=== PATIENT | male | born 1970 | race Caucasian/White ===

== ENCOUNTER 2017-05-06 21:32 | Emergency (ER) | payer SELFPAY ==
[~2017-05-06] VITALS: Ht 175.3 cm; Wt 85.3 kg
[~2017-05-06 21:32] MED LIST: DUONSOL2 NEB; VENTAER INH
[2017-05-06 21:34] VITALS: BP 171/83; PULSE 94; RESP 18; TEMP 98.3; O2SAT 98
[2017-05-06] MEDS ORDERED: SYMB80AE INH (21:50)
--- NOTE | 2017-05-06 21:52 | PD ---
HPI Chief Complaint: Back/ Neck Pain or Injury Time Seen by Provider: 21:49 Travel History International Travel<30 days: No Contact w/Intl Traveler<30days: No Traveled to known affect area: No History of Present Illness HPI 46-year-old male with history of low back pain presents to the emergency department with acute flareup of his chronic low back pain. He states it's in the central lower lumbar spine. He denies sciatic symptoms. He states it is worse with certain movements. He denies bowel or bladder problems. He denies weakness in the lower extremities but mainly stiffness in the low back. Patient denies any specific injury. He is requesting no narcotic medications. He is allergic to erythromycin and iodine. PFSH Past Medical History Asthma: Yes Blood Disorders: No Cancer: No Cardiovascular Problems: No Diminished Hearing: No Endocrine: No Genitourinary: No Hepatitis: No Immune Disorder: No Implanted Vascular Access Dvce: No Musculoskeletal: No Neurologic: No Psychiatric: No Reproductive: No Respiratory: Yes (asthma) Immunizations Current: Yes Ulcer: No Past Surgical History Other Surgery: No Social History Alcohol Use: No Tobacco Use: No Substance Use: Yes Allergies-Medications (Allergen,Severity, Reaction): Coded Allergies: Erythromycin (Verified Allergy, Severe, HIVES, 05/06/17) Iodine (Verified Allergy, Severe, RASH, 05/06/17) Reported Meds & Prescriptions Reported Meds & Active Scripts Active Prednisone 20 Mg Tab 20 Mg PO BID Non-Aspirin Pain Relief ES (Acetaminophen) 500 Mg Tab 1,000 Mg PO Q6HR PRN Reported Symbicort Inh (Budesonide/Formoterol Fumarate) 80-4.5 Mcg/Act Aero 2 Puff INH Q12HR Review of Systems General / Constitutional: No: Fever Eyes: No: Visual changes HENT: No: Headaches Cardiovascular: No: Chest Pain or Discomfort Respiratory: No: Shortness of Breath Gastrointestinal: No: Abdominal Pain Genitourinary: No: Dysuria Musculoskeletal: Positive: Arthralgias, Limited ROM, Pain Skin: No Rash Neurologic: No: Weakness Psychiatric: No: Depression Endocrine: No: Polydipsia Hematologic/Lymphatic: No: Easy Bruising Physical Exam Narrative GENERAL: Patient is in mild to moderate distress. SKIN: Warm and dry. Normal color. Normal turgor. No rash. HEAD: Atraumatic. Normocephalic. EYES: Pupils equal and round. No scleral icterus. No injection or drainage. ENT: No nasal bleeding or discharge. Mucous membranes pink and moist. Pharynx is clear. Airway is patent. NECK: Trachea midline. Supple and nontender. CARDIOVASCULAR: Regular rate and rhythm. RESPIRATORY: No accessory muscle use. Clear to auscultation. Breath sounds equal bilaterally. MUSCULOSKELETAL: Extremities without clubbing, cyanosis, or edema. No obvious deformities. Patient has pain at the L4 5 level centrally. He is able to stand on one leg bilaterally. Patient has limited twisting or bending of the lumbar spine secondary to pain. Negative straight leg raise pain bilaterally. Patient is able to dorsiflex and plantar flex without difficulty. NEUROLOGICAL: Awake and alert. No obvious cranial nerve deficits. Motor grossly within normal limits. Five out of 5 muscle strength in the arms and legs. Normal speech. PSYCHIATRIC: Appropriate mood and affect; insight and judgment normal. Data Data Last Documented VS Vital Signs Date Time Temp Pulse Resp B/P Pulse Ox O2 Delivery O2 Flow Rate FiO2 05/06/17 21:34 98.3 94 18 171/83 98 Orders Dexamethasone Inj (Decadron Inj) (05/06/17 22:00) Ketorolac Inj (Toradol Inj) (05/06/17 22:00) [facility] Medical Decision Making Medical Screen Exam Complete: Yes Emergency Medical Condition: Yes Medical Record Reviewed: Yes Differential Diagnosis Acute lower back pain. Lumbago. Sciatica. Narrative Course Patient is felt medically stable at time of exam. Radiographic imaging is not felt warranted. Patient is given Toradol 60 mg IM as well as Decadron 10 mg IM. Patient will be continued on prednisone 20 mg twice a day 7 days. Patient take Tylenol 1000 mg every 6 hours #60. Patient use heat and ice and gentle stretching and follow-up if not improving or worsening. Diagnosis Primary Impression: Acute low back pain Qualified Code: M54.5 - Acute midline low back pain without sciatica Referrals: [facility] Patient Instructions: Acute Low Back Pain (ED), General Instructions, Lower Back Exercises (ED) Additional Instructions: Radiographic imaging is not felt warranted. Patient is given Toradol 60 mg IM as well as Decadron 10 mg IM. Patient will be continued on prednisone 20 mg twice a day 7 days. Patient take Tylenol 1000 mg every 6 hours #60. Patient use heat and ice and gentle stretching and follow-up if not improving or worsening. Med/Other Pt SpecificInfo: Prescription(s) given Scripts Prednisone 20 Mg Tab20 Mg PO BID #14 TAB Prov:Elayne Carmona MD 05/06/17 Acetaminophen (Non-Aspirin Pain Relief ES)500 Mg Tab1,000 Mg PO Q6HR PRN (PAIN) #60 TAB Prov:Elayne Carmona MD 05/06/17 Disposition: 01 DISCHARGE HOME Condition: Stable Sai Correia May 06, 2017 21:52
[2017-05-06] MEDS ORDERED: NON-500T13 PO (21:58)
[2017-05-06] MEDS ORDERED: PRED20 PO (21:58)
[2017-05-06] MEDS ORDERED: DEXAMETHASONE SOD PHOS 20 MG/5 ML VIAL IM ONE (22:00)
[2017-05-06] MEDS ORDERED: KETOROLAC TROMETHAMINE 60 MG/2 ML (IM) VIAL IM ONE (22:00)
== END 2017-05-06 22:29 | disposition home or self-care (01) ==
LOC: PHEFT 21:32
DX: M54.5 Low back pain (principal)
CPT/HCPCS: 96372; 99284; J1100; J1885

== ENCOUNTER 2017-11-19 09:21 | Emergency (ER) | payer SELFPAY ==
[~2017-11-19] VITALS: Ht 175.3 cm; Wt 90.0 kg
[~2017-11-19 09:21] MED LIST changes: -DUONSOL2 NEB; +NON-500T13 PO; +PRED20 PO; +SYMB80AE INH; -VENTAER INH
[2017-11-19 09:22] VITALS: BP 124/77; PULSE 82; RESP 16; TEMP 98.4; O2SAT 100
--- NOTE | 2017-11-19 10:08 | RADRPT ---
EXAM DATE/TIME: 11/19/2017 09:37 [facility] COMPARISON: No previous studies available for comparison. INDICATIONS : Left wrist pain, fall while snowboarding. MEDICAL HISTORY : None. SURGICAL HISTORY : None. 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 On the oblique images, I cannot exclude a fracture through the scaphoid waist versus a normal anatomic cough with regional spurring associated with the aforementioned arthritic changes. There also appears to be prominent spurring off the distal ulnar metaphysis. Osseous cysts are seen in the trapezium and trapezoid but I do not see an acute fracture. Punctate ca lcific density projects over the first metacarpal but this appears to be in the adjacent soft tissues on the lateral. Well-corticated ossification dorsal to the proximal carpal row may represent bony fr agmentation associated with osteoarthritis or an old avulsion injury. CONCLUSION: 1. Marked degenerative changes at the radiocarpal joint as detailed above. Marginal spurring off the distal ulna as well. 2. Benign-appearing osseous cysts in the trapezium and trapezoid. 3. Cannot exclude a scaphoid waist fracture. If patient has point tenderness in the snuffbox region, would suggest CT of the wrist for further characterization. Daniel Eisenberg MD on November 19, 2017 at 9:54 Board Certified Radiologist. This report was verified electronically.
[2017-11-19] MEDS ORDERED: MELO7.5T27 PO (10:24)
--- NOTE | 2017-11-19 10:24 | PD ---
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 He feels like it is a burning pain and it is worse when he moves his wrist. He denies any recent injuries. PFSH Past Medical History Asthma: Yes Blood Disorders: No Cancer: No Cardiovascular Problems: No Diminished Hearing: No Endocrine: No Genitourinary: No Hepatitis: No Immune Disorder: No Implanted Vascular Access Dvce: No Musculoskeletal: No Neurologic: No Psychiatric: No Reproductive: No Respiratory: Yes (asthma) Immunizations Current: Yes Ulcer: No Past Surgical History Other Surgery: No Social History Alcohol Use: No Tobacco Use: Yes (/2 PPD) Substance Use: Yes Allergies-Medications (Allergen,Severity, Reaction): Coded Allergies: erythromycin base (Unverified Allergy, Severe, HIVES, 05/25/17) iodine (Unverified Allergy, Severe, RASH, 05/25/17) potassium iodide (Unverified Allergy, Severe, RASH, 05/25/17) povidone-iodine (Unverified Allergy, Severe, RASH, 05/25/17) sodium iodide (Unverified Allergy, Severe, RASH, 05/25/17) sodium iodide (Unverified Allergy, Severe, RASH, 05/25/17) Reported Meds & Prescriptions Reported Meds & Active Scripts Active Prednisone 20 Mg Tab 20 Mg PO BID Non-Aspirin Pain Relief ES (Acetaminophen) 500 Mg Tab 1,000 Mg PO Q6HR PRN Reported Symbicort Inh (Budesonide/Formoterol Fumarate) 80-4.5 Mcg/Act Aero 2 Puff INH Q12HR Review of Systems General / Constitutional: No: Fever, Chills Respiratory: No: Cough, Shortness of Breath Physical Exam Narrative GENERAL: Well-appearing, no acute distress, nontoxic SKIN: Warm and dry. HEAD: Atraumatic. Normocephalic. ENT: No nasal bleeding or discharge. Moist mucous membranes MUSCULOSKELETAL: Tender to palpation over the left distal radius at the wrist with some focal swelling over the radial aspect of the wrist VASCULAR: 2+ left radial pulse with normal capillary refill. NEUROLOGICAL: Awake and alert. No obvious cranial nerve deficits. Sensation is grossly intact in the median, ulnar and radial distributions of the left hand. PSYCHIATRIC: Appropriate mood and affect; insight and judgment normal. Data Data Last Documented VS Vital Signs Date Time Temp Pulse Resp B/P (MAP) Pulse Ox O2 Delivery O2 Flow Rate FiO2 11/19/17 09:22 98.4 82 16 124/77 (93) 100 Orders Orders Wrist, Complete ([id number]) (11/19/17 ) [facility] Medical Decision Making Medical Screen Exam Complete: Yes Emergency Medical Condition: Yes Interpretation(s) Last 24 hours Impressions Wrist X-Ray 11/19/17 0000 Signed Impressions: Service Date/Time: Sunday, November 19, 2017 09:37 - CONCLUSION: 1. Marked degenerative changes at the radiocarpal joint as detailed above. Marginal spurring off the distal ulna as well. 2. Benign-appearing osseous cysts in the trapezium and trapezoid. 3. Cannot exclude a scaphoid waist fracture. If patient has point tenderness in the snuffbox region, would suggest CT of the wrist for further characterization. 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 He has evidence of some focal swelling over the distal radius. X-ray demonstrates significant arthritis and degeneration of the radiocarpal joint which correlates to the patient's pain. Patient was advised to ice, elevate, and mobilize and rest the wrist. He was given referral to hand surgery and will be initiated on meloxicam. He has a normal neurovascular exam and is appropriate for outpatient therapy. Diagnosis Primary Impression: Radiocarpal joint sprain Qualified Codes: S63.522A - Sprain of radiocarpal joint of left wrist, initial encounter Patient Instructions: General Instructions Additional Instructions: If you develop increasing pain, numbness, weakness or coolness of the hand return to the emergency department. Rest, ice, elevate and splint your wrist. Follow up with a hand surgeon if your not improved. Med/Other Pt SpecificInfo: Prescription(s) given Scripts Meloxicam (Meloxicam) 7.5 Mg Tab 7.5 MG PO DAILY for Arthritis Pain, #20 TAB 0 Refills Prov: Nita Paez MD 11/19/17 Disposition: 01 DISCHARGE HOME Condition: Stable Nita Paez MD Nov 19, 2017 10:24
[2017-11-19] MEDS ORDERED: KETOROLAC TROMETHAMINE 60 MG/2 ML (IM) VIAL IM ONE (11:00)
== END 2017-11-19 11:10 | disposition home or self-care (01) ==
LOC: NEPD 09:21
DX: S63.522A Sprain of radiocarpal joint of left wrist, initial encounter (principal); M85.68 Other cyst of bone, other site; J45.909 Unspecified asthma, uncomplicated; F17.200 Nicotine dependence, unspecified, uncomplicated; X58.XXXA Exposure to other specified factors, initial encounter
CPT/HCPCS: 73110; 96372; 99283; J1885; L3908

== ENCOUNTER 2017-12-29 17:10 | Emergency (ER) | payer SELFPAY ==
[~2017-12-29 17:10] MED LIST changes: +MELO7.5T27 PO
[2017-12-29 17:24] VITALS: BP 155/91; PULSE 115; RESP 18; TEMP 98; O2SAT 97
--- NOTE | 2017-12-29 21:33 | PD ---
HPI Chief Complaint: Cold / Flu Symptoms Time Seen by Provider: 17:24 Travel History International Travel<30 days: No Contact w/Intl Traveler<30days: No Traveled to known affect area: No History of Present Illness HPI Pt is a 47-year-old male presenting to the emergency for evaluation of fatigue, cough, nasal congestion. Patient states it started Wednesday, he reports low back pain for the last 2 days. He denies any injury or trauma. He has not checked his temperature and is unsure if he has had a fever. He denies any nausea, vomiting, abdominal pain, chest pain or shortness of breath. Symptom onset was gradual, symptom severity is mild to moderate, there are no alleviating factors. PFSH Past Medical History Asthma: Yes Blood Disorders: No Cancer: No Cardiovascular Problems: No Diminished Hearing: No Endocrine: No Genitourinary: No Hepatitis: No Immune Disorder: No Implanted Vascular Access Dvce: No Musculoskeletal: No Neurologic: No Psychiatric: No Reproductive: No Respiratory: Yes (asthma) Immunizations Current: Yes Ulcer: No Past Surgical History Other Surgery: No Social History Alcohol Use: No Tobacco Use: Yes (/2 PPD) Substance Use: Yes Allergies-Medications (Allergen,Severity, Reaction): Coded Allergies: erythromycin base (Unverified Allergy, Severe, HIVES, 12/29/17) iodine (Unverified Allergy, Severe, RASH, 12/29/17) potassium iodide (Unverified Allergy, Severe, RASH, 12/29/17) povidone-iodine (Unverified Allergy, Severe, RASH, 12/29/17) sodium iodide (Unverified Allergy, Severe, RASH, 12/29/17) codeine (Verified Allergy, Unknown, believes hives, 12/29/17) Reported Meds & Prescriptions Reported Meds & Active Scripts Active Meloxicam 7.5 Mg Tab 7.5 Mg PO DAILY Prednisone 20 Mg Tab 20 Mg PO BID Non-Aspirin Pain Relief ES (Acetaminophen) 500 Mg Tab 1,000 Mg PO Q6HR PRN Reported Symbicort Inh (Budesonide/Formoterol Fumarate) 80-4.5 Mcg/Act Aero 2 Puff INH Q12HR Review of Systems Except as stated in HPI: all other systems reviewed are Neg HENT: Positive: Rhinitis, Congestion Cardiovascular: No: Chest Pain or Discomfort Respiratory: Positive: Cough Gastrointestinal: No: Nausea, Vomiting Musculoskeletal: No: Myalgias Physical Exam Narrative GENERAL: Well-developed, well-nourished, alert male. Presenting in no acute distress. SKIN: Warm and dry. HEAD: Normocephalic. EYES: No scleral icterus. No injection or drainage. NECK: Supple, trachea midline. No JVD or lymphadenopathy. RESPIRATORY: Breath sounds equal bilaterally. No accessory muscle use. CARDIOVASCULAR: Tachycardic Data Data Last Documented VS Vital Signs Date Time Temp Pulse Resp B/P (MAP) Pulse Ox O2 Delivery O2 Flow Rate FiO2 12/29/17 17:24 98.0 115 18 155/91 (112) 97 [facility] Medical Decision Making Medical Screen Exam Complete: Yes Emergency Medical Condition: Yes Interpretation(s) Vital Signs Date Time Temp Pulse Resp B/P (MAP) Pulse Ox O2 Delivery O2 Flow Rate FiO2 12/29/17 17:24 98.0 115 18 155/91 (112) 97 Differential Diagnosis Bronchitis versus pneumonia versus URI versus other Narrative Course Patient is a 47-year-old male presenting to the emergency room for evaluation of cold and flulike symptoms. Patient is mildly tachycardic on arrival. Patient is awaiting bed placement. Patient was called be placed in a bed, he was no longer found in the emergency department. Patient left AMA. Diagnosis Primary Impression: Left against medical advice Ivonne Alonzo Dec 29, 2017 21:33
[2017-12-30] MEDS ORDERED: IBUP1TAB7 PO (01:18)
[2017-12-30] MEDS ORDERED: FLUT1INH INH (01:18)
[2017-12-30] MEDS ORDERED: ROBA750T PO (02:58)
== END 2017-12-30 01:41 | disposition left against medical advice (07) ==
LOC: NED 17:10
DX: R05 Cough (principal); R53.83 Other fatigue; R09.81 Nasal congestion; R00.0 Tachycardia, unspecified; M54.5 Low back pain; J45.909 Unspecified asthma, uncomplicated; F17.200 Nicotine dependence, unspecified, uncomplicated; Z53.20 Procedure and treatment not carried out because of patient's decision for unspecified reasons
CPT/HCPCS: 99281

== ENCOUNTER 2017-12-29 20:21 | Emergency (ER) | payer SELFPAY ==
[~2017-12-29] VITALS: Ht 175.3 cm; Wt 89.7 kg
[2017-12-29 20:56] VITALS: BP 152/90; PULSE 122; RESP 18; TEMP 97.8; O2SAT 97
[2017-12-30] MEDS ORDERED: cefTRIAXone INJ 2,000 MG in SODIUM CHLORIDE 0.9% INJ 100 ML IV STA (01:09)
[2017-12-30] MEDS ORDERED: SODIUM CHLOR 0.9% 1000 ML INJ 1,000 ML IV ONE ×2 (01:15→04:00)
--- NOTE | 2017-12-30 01:16 | PD ---
HPI Chief Complaint: Cold / Flu Symptoms Time Seen by Provider: 01:09 Travel History International Travel<30 days: No Contact w/Intl Traveler<30days: No Traveled to known affect area: No History of Present Illness HPI 47-year-old male presents to the emergency department by private transportation for complaint of fever chills sore throat myalgias arthralgias cough congestion nausea vomiting since Wednesday. Patient states symptoms have not improved. Patient states he took a one-time dose of ibuprofen 800 mg. Patient also had bout of diarrhea. Patient complains of flank pain and low back pain due to history of "pinched nerve" exacerbated by coughing. No bladder or bowel dysfunction, no saddle anesthesia, no lower extremity numbness tingling or weakness. Patient denies any dysuria frequency urgency or hematuria. Patient denies any injury. Patient denies any abdominal pain. Patient has history of asthma. PFSH Past Medical History Narrative Medical Asthma; tobacco use; nursing notes reviewed Asthma: Yes Blood Disorders: No Cancer: No Cardiovascular Problems: No Diminished Hearing: No Endocrine: No Genitourinary: No Hepatitis: No Immune Disorder: No Implanted Vascular Access Dvce: No Musculoskeletal: No Neurologic: No Psychiatric: No Reproductive: No Respiratory: Yes (asthma) Immunizations Current: Yes Ulcer: No Past Surgical History Other Surgery: No Social History Alcohol Use: No Tobacco Use: Yes (1/2 PPD) Substance Use: Yes Allergies-Medications (Allergen,Severity, Reaction): Coded Allergies: erythromycin base (Unverified Allergy, Severe, HIVES, 12/29/17) iodine (Unverified Allergy, Severe, RASH, 12/29/17) potassium iodide (Unverified Allergy, Severe, RASH, 12/29/17) povidone-iodine (Unverified Allergy, Severe, RASH, 12/29/17) sodium iodide (Unverified Allergy, Severe, RASH, 12/29/17) codeine (Verified Allergy, Unknown, believes hives, 12/29/17) Reported Meds & Prescriptions Reported Meds & Active Scripts Active Robaxin (Methocarbamol) 750 Mg Tab 750 Mg PO Q6HR Reported Breo Ellipta Inh (Fluticasone/Vilanterol) 100-25 Mcg/Act Inh 1 Puff INH DAILY Use daily at the same time. Ibuprofen 800 Mg Tab 800 Mg PO Q6HR PRN Symbicort Inh (Budesonide/Formoterol Fumarate) 80-4.5 Mcg/Act Aero 2 Puff INH Q12HR Review of Systems Except as stated in HPI: all other systems reviewed are Neg General / Constitutional: Positive: Fever, Chills HENT: Positive: Sore Throat, Congestion Cardiovascular: No: Chest Pain or Discomfort Respiratory: Positive: Cough, Shortness of Breath Gastrointestinal: Positive: Nausea, Vomiting, Diarrhea, No: Abdominal Pain Genitourinary: No: Dysuria, Flank Pain Musculoskeletal: Positive: Myalgias, Arthralgias Skin: No Rash Neurologic: Positive: Weakness Psychiatric: No: Anxiety Hematologic/Lymphatic: No: Lymph Node Enlargement Physical Exam Narrative GENERAL: Well-developed well-nourished male no acute distress or respiratory distress; triage vital signs tachycardia SKIN: Warm and dry. HEAD: Normocephalic. EYES: No scleral icterus. No injection or drainage. ENT: Mucous membranes moist airway is patent NECK: Supple, trachea midline. No JVD or lymphadenopathy. CARDIOVASCULAR: Regular rate and rhythm without murmurs, gallops, or rubs. RESPIRATORY: Breath sounds equal bilaterally. No accessory muscle use. GASTROINTESTINAL: Abdomen soft, non-tender, nondistended. MUSCULOSKELETAL: No cyanosis, or edema. BACK: Nontender without obvious deformity. No CVA tenderness. Data Data Last Documented VS Vital Signs Date Time Temp Pulse Resp B/P (MAP) Pulse Ox O2 Delivery O2 Flow Rate FiO2 12/29/17 20:56 97.8 122 18 152/90 (110) 97 Orders Orders Sepsis Workup Initiated (12/30/17 ) Complete Blood Count With Diff (12/30/17 01:09) Comprehensive Metabolic Panel (12/30/17 01:09) Lactic Acid Sepsis Protocol (12/30/17 01:09) Urinalysis - C+S If Indicated (12/30/17 01:09) Influenzae A/B Antigen (12/30/17 01:09) Blood Culture (12/30/17 01:09) Chest, Pa & Lat (12/30/17 01:09) Blood Glucose (12/30/17 01:09) Ecg Monitoring (12/30/17 01:09) Iv Access Insert/Monitor (12/30/17 01:09) Oximetry (12/30/17 01:09) Oxygen Administration (12/30/17 01:09) Ceftriaxone Inj (Rocephin Inj) (12/30/17 01:09) Sodium Chlor 0.9% 1000 Ml Inj (Ns 1000 M (12/30/17 01:15) Group A Rapid Strep Screen (12/30/17 01:09) Strep Culture (Group A) (12/30/17 01:35) Ketorolac Inj (Toradol Inj) (12/30/17 02:45) Ns (Bolus) Inj (12/30/17 04:00) Orphenadrine Inj (Norflex Inj) (12/30/17 04:00) Labs Laboratory Tests Test 12/30/17 01:35 12/30/17 03:20 White Blood Count 6.8 TH/MM3 Red Blood Count 5.07 MIL/MM3 Hemoglobin 14.6 GM/DL Hematocrit 44.2 % Mean Corpuscular Volume 87.2 FL Mean Corpuscular Hemoglobin 28.9 PG Mean Corpuscular Hemoglobin Concent 33.1 % Red Cell Distribution Width 13.3 % Platelet Count 266 TH/MM3 Mean Platelet Volume 9.3 FL Neutrophils (%) (Auto) 64.0 % Lymphocytes (%) (Auto) 17.2 % Monocytes (%) (Auto) 16.2 % Eosinophils (%) (Auto) 1.9 % Basophils (%) (Auto) 0.7 % Neutrophils # (Auto) 4.4 TH/MM3 Lymphocytes # (Auto) 1.2 TH/MM3 Monocytes # (Auto) 1.1 TH/MM3 Eosinophils # (Auto) 0.1 TH/MM3 Basophils # (Auto) 0.0 TH/MM3 CBC Comment DIFF FINAL Differential Comment Blood Urea Nitrogen 11 MG/DL Creatinine 1.10 MG/DL Random Glucose 94 MG/DL Total Protein 7.6 GM/DL Albumin 3.5 GM/DL Calcium Level 8.2 MG/DL Alkaline Phosphatase 104 U/L Aspartate Amino Transf (AST/SGOT) 45 U/L Alanine Aminotransferase (ALT/SGPT) 52 U/L Total Bilirubin 0.4 MG/DL Sodium Level 133 MEQ/L Potassium Level 4.1 MEQ/L Chloride Level 100 MEQ/L Carbon Dioxide Level 27.4 MEQ/L Anion Gap 6 MEQ/L Estimat Glomerular Filtration Rate 71 ML/MIN Lactic Acid Level 1.1 mmol/L Urine Color YELLOW Urine Turbidity CLEAR Urine pH 5.5 Urine Specific [place] GREATER/EQUAL 1.030 Urine Protein NEG mg/dL Urine Glucose (UA) NEG mg/dL Urine Ketones NEG mg/dL Urine Occult Blood NEG Urine Nitrite NEG Urine Bilirubin NEG Urine Urobilinogen 0.2 MG/DL Urine Leukocyte Esterase NEG Urine RBC 0-2 /hpf Urine WBC 0-2 /hpf Urine Squamous Epithelial Cells 0-5 /hpf Urine Bacteria NONE /hpf Microscopic Urinalysis Comment CULT NOT INDICATED MDM Medical Decision Making Medical Screen Exam Complete: Yes Emergency Medical Condition: Yes Medical Record Reviewed: Yes Interpretation(s) Influenza antigen: A positive Last Impressions Chest X-Ray 12/30/17 0109 Signed Impressions: Service Date/Time: December 01:57 - CONCLUSION: The lungs are clear. Franklyn La MD CBC & BMP Diagram 12/30/17 01:35 Total Protein 7.6, Albumin 3.5, Calcium Level 8.2 L, Alkaline Phosphatase 104, Aspartate Amino Transf (AST/SGOT) 45 H, Alanine Aminotransferase (ALT/SGPT) 52, Total Bilirubin 0.4 Vital Signs Date Time Temp Pulse Resp B/P (MAP) Pulse Ox O2 Delivery O2 Flow Rate FiO2 12/29/17 20:56 97.8 122 18 152/90 (110) 97 lactic acid: 1.1, not elevated Differential Diagnosis Viral syndrome, influenza, bronchitis, pneumonia, pharyngitis, sepsis Narrative Course IV access obtained specimens collected and sent for resulting patient given a liter of normal saline bolus as well as Rocephin 2 gm IV piggyback Lab values found to be in normal range chest x-ray reveals no acute infiltrate Influenza antigen a is positive patient symptoms began on Wednesday he is now 5 days into symptoms and therefore not a candidate for Tamiflu patient informed influenza test is positive for myalgia or arthralgia and arthritic pain patient given a dose of Toradol 30 mg IV At 2:57 AM patient complains of muscle spasm and requesting a muscle relaxant therefore given a one-time dose of Norflex IM; VS now within normal range, heart rate: 81; room air O2 saturation 99%; blood pressure 128/83, respirations not labored. Sepsis Criteria SIRS Criteria (2 or more): Heart rate over 90 Diagnosis Primary Impression: Influenza A Additional Impression: Acute low back pain Qualified Codes: M54.5 - Low back pain Referrals: Primary Care Physician call for appointment Patient Instructions: General Instructions Additional Instructions: Increase fluid hydration Take acetaminophen/Tylenol every 4 hours for fever 100.4F or greater Take ibuprofen/Advil/Motrin 800 mg as often as every 8 hours for fever 100.4F or greater or for pain associated with inflammation Follow-up with primary care provider Return to the emergency department for any concerns or change in condition No work 2 days apply moist heat to low back intermittently Med/Other Pt SpecificInfo: Prescription(s) given Scripts Methocarbamol (Robaxin) 750 Mg Tab 750 MG PO Q6HR for Muscle Spasm, #12 TAB 0 Refills Prov: Elayne Carmona MD 12/30/17 Disposition: 01 DISCHARGE HOME Condition: Stable Elayne Carmona MD Dec 30, 2017 01:16
[2017-12-30] MEDS ORDERED: IBUP1TAB7 PO (01:18)
[2017-12-30] MEDS ORDERED: FLUT1INH INH (01:18)
[2017-12-30 01:30] VITALS: BP 135/82; PULSE 94; RESP 20; TEMP 98.2; O2SAT 98
[2017-12-30 01:57] LABS: AUTOMATED NEUTROPHIL # 4.4 TH/MM3 (1.8-7.7); BASOPHIL % 0.7 % (0.0-2.0); EOSINOPHIL # 0.1 TH/MM3 (0-0.4); EOSINOPHIL % 1.9 % (0.0-4.0); HEMATOCRIT 44.2 % (39.0-51.0); HEMOGLOBIN 14.6 GM/DL (13.0-17.0); LYMPH % 17.2 % (9.0-44.0); LYMPHOCYTE # 1.2 TH/MM3 (1.0-4.8); MEAN CELL VOLUME 87.2 FL (80.0-100.0); MEAN CORPUSCULAR HEMOGLOBIN 28.9 PG (27.0-34.0); MEAN CORPUSCULAR HGB CONC 33.1 % (32.0-36.0); MEAN PLATELET VOLUME 9.3 FL (7.0-11.0); MONO % 16.2 % (0.0-8.0); MONOCYTE # 1.1 TH/MM3 (0-0.9); PLATELET COUNT 266 TH/MM3 (150-450); RED BLOOD COUNT 5.07 MIL/MM3 (4.50-5.90); RED CELL DISTRIBUTION WIDTH 13.3 % (11.6-17.2); WHITE BLOOD COUNT 6.8 TH/MM3 (4.0-11.0)
[2017-12-30 02:06] LABS: CHLORIDE 100 MEQ/L (98-107); SODIUM (NA) 133 MEQ/L (136-145)
--- NOTE | 2017-12-30 02:07 | RADRPT ---
EXAM DATE/TIME: 12/30/2017 01:57 [facility] COMPARISON: No previous studies available for comparison. INDICATIONS : Cough, fever, flu-like symptoms for 4 days MEDICAL HISTORY : None. SURGICAL HISTORY : None. ENCOUNTER: Initial ACUITY: 4 - 6 days PAIN SCORE: 10/10 LOCATION: Bilateral chest FINDINGS: PA and lateral views of the chest demonstrate the lungs to be symmetrically aerated without evidence of mass, infiltrate or effusion. The cardiomediastinal contours are unremarkable. Osseous structure s are intact. CONCLUSION: The lungs are clear. Franklyn La MD on December 30, 2017 at 2:06 Board Certified Radiologist. This report was verified electronically.
[2017-12-30 02:09] LABS: CALCIUM 8.2 MG/DL (8.5-10.1)
[2017-12-30 02:10] LABS: ALBUMIN 3.5 GM/DL (3.4-5.0); BICARBONATE 27.4 MEQ/L (21.0-32.0); BLOOD UREA NITROGEN 11 MG/DL (7-18); GLUCOSE,RANDOM 94 MG/DL (74-106)
[2017-12-30 02:13] LABS: ALT (GPT) 52 U/L (12-78); AST (GOT) 45 U/L (15-37); GLOMERULAR FILTRATION RATE 71 ML/MIN (>89)
[2017-12-30 02:15] LABS: TOTAL BILIRUBIN ADULT 0.4 MG/DL (0.2-1.0); TOTAL PROTEIN 7.6 GM/DL (6.4-8.2)
[2017-12-30 02:16] LABS: ALKALINE PHOSPHATASE 104 U/L (45-117)
[2017-12-30 02:30] VITALS: BP 128/83; PULSE 94; RESP 20; O2SAT 98
[2017-12-30] MEDS ORDERED: KETOROLAC TROMETHAMINE 30 MG/ML (IVP) VIAL IV PUSH ONE (02:45)
[2017-12-30] MEDS ORDERED: ROBA750T PO (02:58)
[2017-12-30 03:30] VITALS: BP 130/96; PULSE 84; RESP 18; O2SAT 97
[2017-12-30 03:34] LABS: BILIRUBIN, URINE NEG (NEG); BLOOD, URINE NEG (NEG); GLUCOSE,URINE NEG (NEG); KETONE, URINE NEG (NEG); NITRITE,URINE NEG (NEG); PH, URINE 5.5 (5.0-8.5); URINE COLOR YELLOW (YELLW/STRAW); URINE LEUKOCYTE ESTERASE NEG (NEG)
[2017-12-30 03:39] LABS: RBC, URINE 0-2 /hpf (0-3); WBC, URINE 0-2 /hpf (0-5)
[2017-12-30 03:40] LABS: SQUAMOUS EPITHELIAL CELL URINE 0-5 /hpf (0-5)
[2017-12-30] MEDS ORDERED: ORPHENADRINE INJ 60 MG/2 ML AMP IM ONE (04:00)
[2017-12-30 04:40] VITALS: BP 113/74; TEMP 98.9
== END 2017-12-30 04:57 | disposition home or self-care (01) ==
LOC: PHED 20:21
DX: J09.X2 Influenza due to identified novel influenza A virus with other respiratory manifestations (principal); M54.5 Low back pain; J45.909 Unspecified asthma, uncomplicated; F17.210 Nicotine dependence, cigarettes, uncomplicated; Z88.5 Allergy status to narcotic agent; Z88.1 Allergy status to other antibiotic agents; Z79.899 Other long term (current) drug therapy
CPT/HCPCS: 71046; 80053; 81001; 83605; 85025; 87040; 87081; 87804; 87880; 96365; 96366; 96375; 99284; J0696; J1885; J7030

== ENCOUNTER 2018-01-04 11:12 | Emergency (ER) | payer SELFPAY ==
[~2018-01-04] VITALS: Ht 175.3 cm; Wt 88.3 kg
[~2018-01-04 11:12] MED LIST changes: +FLUT1INH INH; +IBUP1TAB7 PO; -MELO7.5T27 PO; -NON-500T13 PO; -PRED20 PO; +ROBA750T PO
[2018-01-04 11:30] VITALS: BP 139/89; PULSE 100; RESP 16; TEMP 97.3; O2SAT 97
[2018-01-04] MEDS ORDERED: ONDANSETRON HCL 4 MG/2 ML VIAL IV PUSH ONE ×2 (12:00→14:15)
[2018-01-04] MEDS ORDERED: KETOROLAC TROMETHAMINE 30 MG/ML (IVP) VIAL IV PUSH ONE (12:00)
[2018-01-04] MEDS ORDERED: MORPHINE SULFATE 2 MG/ML INJ IV PUSH ONE (12:00)
[2018-01-04 12:17] LABS: BASOPHIL # 0.1 TH/MM3 (0-0.2); BASOPHIL % 0.6 % (0.0-2.0); BILIRUBIN, URINE NEG (NEG); BLOOD, URINE NEG (NEG); EOSINOPHIL # 0.2 TH/MM3 (0-0.4); EOSINOPHIL % 1.3 % (0.0-4.0); GLUCOSE,URINE NEG (NEG); HEMATOCRIT 44.4 % (39.0-51.0); HEMOGLOBIN 14.6 GM/DL (13.0-17.0); KETONE, URINE NEG (NEG); LYMPH % 19.9 % (9.0-44.0); LYMPHOCYTE # 2.9 TH/MM3 (1.0-4.8); MEAN CELL VOLUME 87.1 FL (80.0-100.0); MEAN CORPUSCULAR HEMOGLOBIN 28.6 PG (27.0-34.0); MEAN CORPUSCULAR HGB CONC 32.8 % (32.0-36.0); MEAN PLATELET VOLUME 8.9 FL (7.0-11.0); MONOCYTE # 1.5 TH/MM3 (0-0.9); NEUT % 68.2 % (16.0-70.0); NITRITE,URINE NEG (NEG); PH, URINE 5.5 (5.0-8.5); PLATELET COUNT 413 TH/MM3 (150-450); RED CELL DISTRIBUTION WIDTH 12.8 % (11.6-17.2); URINE COLOR YELLOW (YELLW/STRAW); URINE LEUKOCYTE ESTERASE NEG (NEG); WHITE BLOOD COUNT 14.7 TH/MM3 (4.0-11.0)
[2018-01-04 12:25] LABS: RBC, URINE 0-3 /hpf (0-3); SQUAMOUS EPITHELIAL CELL URINE 0-5 /hpf (0-5)
[2018-01-04 12:27] LABS: CHLORIDE 103 MEQ/L (98-107); SODIUM (NA) 137 MEQ/L (136-145)
[2018-01-04 12:31] LABS: CALCIUM 8.8 MG/DL (8.5-10.1)
[2018-01-04 12:32] LABS: ALBUMIN 3.6 GM/DL (3.4-5.0); BICARBONATE 28.8 MEQ/L (21.0-32.0); BLOOD UREA NITROGEN 20 MG/DL (7-18); GLUCOSE,RANDOM 92 MG/DL (74-106)
[2018-01-04 12:34] LABS: ALT (GPT) 27 U/L (12-78); AST (GOT) 13 U/L (15-37)
[2018-01-04 12:35] LABS: GLOMERULAR FILTRATION RATE 71 ML/MIN (>89)
--- NOTE | 2018-01-04 12:35 | PD ---
HPI Chief Complaint: Back/ Neck Pain or Injury Time Seen by Provider: 11:39 Travel History International Travel<30 days: No Contact w/Intl Traveler<30days: No Traveled to known affect area: No History of Present Illness HPI 39-year-old male that presents to the ED for evaluation of back spasms especially to his right side. Per patient his been ongoing for some time but worse for the past couple of days. Per patient he was seen here last week for reevaluation of the spasms as well as congestion at the time. She was found to have influenza but was not given any medication or treatment Robaxin. Per patient for Robaxin has not helped and has remained symptoms worse. Per patient the pain is becoming more significant. Per patient the pain is 10 out of 10. States that he comes in waves. Denies any urinary or bowel movement issues pierced is mainly on the right side. No left-sided pain. No numbness, tingling, weakness. No injury or anymore. He has not seen anybody for this. Denies any history of kidney stones. Allergy to iodine, erythromycin ointment and codeine. PFSH Past Medical History Asthma: Yes Blood Disorders: No Cancer: No Cardiovascular Problems: No Diminished Hearing: No Endocrine: No Genitourinary: No Hepatitis: No Immune Disorder: No Implanted Vascular Access Dvce: No Musculoskeletal: No Neurologic: No Psychiatric: No Reproductive: No Respiratory: Yes Immunizations Current: Yes Ulcer: No Past Surgical History Other Surgery: No Social History Alcohol Use: No Tobacco Use: Yes (1/2 PPD) Substance Use: Yes (MARIJUANA SOMETIMES) Allergies-Medications (Allergen,Severity, Reaction): Coded Allergies: erythromycin base (Unverified Allergy, Severe, HIVES, 01/04/18) iodine (Unverified Allergy, Severe, RASH, 01/04/18) potassium iodide (Unverified Allergy, Severe, RASH, 01/04/18) povidone-iodine (Unverified Allergy, Severe, RASH, 01/04/18) sodium iodide (Unverified Allergy, Severe, RASH, 01/04/18) codeine (Verified Allergy, Unknown, believes hives, 01/04/18) Reported Meds & Prescriptions Reported Meds & Active Scripts Active Hydrocodone-Acetamin 5-325 mg (Hydrocodone/Acetaminophen) 5 Mg-325 Mg Tablet 1 Tab PO Q6HR PRN Diclofenac Sodium DR (Diclofenac Sodium) 75 Mg Tabdr 75 Mg PO BID PRN Robaxin (Methocarbamol) 750 Mg Tab 750 Mg PO Q6HR Reported Breo Ellipta Inh (Fluticasone/Vilanterol) 100-25 Mcg/Act Inh 1 Puff INH DAILY Use daily at the same time. Ibuprofen 800 Mg Tab 800 Mg PO Q6HR PRN Symbicort Inh (Budesonide/Formoterol Fumarate) 80-4.5 Mcg/Act Aero 2 Puff INH Q12HR Review of Systems Except as stated in HPI: all other systems reviewed are Neg Physical Exam Narrative GENERAL: SKIN: Warm and dry. HEAD: Atraumatic. Normocephalic. EYES: Pupils equal and round 4 mm reactive to light and accommodation. No scleral icterus. No injection or drainage. ENT: No nasal bleeding or discharge. Mucous membranes pink and moist. Tongue is midline. No uvula deviation. NECK: Trachea midline. No JVD. CARDIOVASCULAR: Regular rate and rhythm. No murmurs, S3, S4. RESPIRATORY: No accessory muscle use. Clear to auscultation. Breath sounds equal bilaterally. GASTROINTESTINAL: Abdomen soft, non-tender, nondistended. Hepatic and splenic margins not palpable. MUSCULOSKELETAL: Extremities without clubbing, cyanosis, or edema. No obvious deformities. Full range of motion of the upper and lower extremity is bilaterally. 2+ pulses bilaterally. Patient has reproducible pain on the right flank but hard to assess due to patient symptoms. No lumbar, thoracic, cervical spine tenderness to palpation. NEUROLOGICAL: Awake and alert. No obvious cranial nerve deficits. Motor grossly within normal limits. Five out of 5 muscle strength in the arms and legs. Normal speech. PSYCHIATRIC: Appropriate mood and affect; insight and judgment normal. Data Data Last Documented VS Vital Signs Date Time Temp Pulse Resp B/P (MAP) Pulse Ox O2 Delivery O2 Flow Rate FiO2 01/04/18 11:30 97.3 100 16 139/89 (106) [address] Abd/Pel W/O Iv Contrast (01/04/18 11:55) Complete Blood Count With Diff (01/04/18 11:55) Comprehensive Metabolic Panel (01/04/18 11:55) Lipase (01/04/18 11:55) Urinalysis - C+S If Indicated (01/04/18 11:55) Iv Access Insert/Monitor (01/04/18 11:55) Ketorolac Inj (Toradol Inj) (01/04/18 12:00) Morphine Inj (Morphine Inj) (01/04/18 12:00) Ondansetron Inj (Zofran Inj) (01/04/18 12:00) Sodium Chlor 0.9% 1000 Ml Inj (Ns 1000 M (01/04/18 12:45) Ed Discharge Order (01/04/18 13:49) Labs Laboratory Tests Test 01/04/18 12:10 White Blood Count 14.7 TH/MM3 Red Blood Count 5.10 MIL/MM3 Hemoglobin 14.6 GM/DL Hematocrit 44.4 % Mean Corpuscular Volume 87.1 FL Mean Corpuscular Hemoglobin 28.6 PG Mean Corpuscular Hemoglobin Concent 32.8 % Red Cell Distribution Width 12.8 % Platelet Count 413 TH/MM3 Mean Platelet Volume 8.9 FL Neutrophils (%) (Auto) 68.2 % Lymphocytes (%) (Auto) 19.9 % Monocytes (%) (Auto) 10.0 % Eosinophils (%) (Auto) 1.3 % Basophils (%) (Auto) 0.6 % Neutrophils # (Auto) 10.0 TH/MM3 Lymphocytes # (Auto) 2.9 TH/MM3 Monocytes # (Auto) 1.5 TH/MM3 Eosinophils # (Auto) 0.2 TH/MM3 Basophils # (Auto) 0.1 TH/MM3 CBC Comment DIFF FINAL Differential Comment Urine Collection Type CLEAN CATCH Urine Color YELLOW Urine Turbidity CLEAR Urine pH 5.5 Urine Specific [place] GREATER/EQUAL 1.030 Urine Protein NEG mg/dL Urine Glucose (UA) NEG mg/dL Urine Ketones NEG mg/dL Urine Occult Blood NEG Urine Nitrite NEG Urine Bilirubin NEG Urine Urobilinogen 0.2 MG/DL Urine Leukocyte Esterase NEG Urine RBC 0-3 /hpf Urine Squamous Epithelial Cells 0-5 /hpf Microscopic Urinalysis Comment CULT NOT INDICATED Urine Collection Time 12:10 Blood Urea Nitrogen 20 MG/DL Creatinine 1.10 MG/DL Random Glucose 92 MG/DL Total Protein 8.2 GM/DL Albumin 3.6 GM/DL Calcium Level 8.8 MG/DL Alkaline Phosphatase 115 U/L Aspartate Amino Transf (AST/SGOT) 13 U/L Alanine Aminotransferase (ALT/SGPT) 27 U/L Total Bilirubin 0.5 MG/DL Sodium Level 137 MEQ/L Potassium Level 4.4 MEQ/L Chloride Level 103 MEQ/L Carbon Dioxide Level 28.8 MEQ/L Anion Gap 5 MEQ/L Estimat Glomerular Filtration Rate 71 ML/MIN Lipase 64 U/L MDM Medical Decision Making Medical Screen Exam Complete: Yes Emergency Medical Condition: Yes Medical Record Reviewed: Yes Interpretation(s) CBC & BMP Diagram 01/04/18 12:10 Total Protein 8.2 #, Albumin 3.6, Calcium Level 8.8, Alkaline Phosphatase 115, Aspartate Amino Transf (AST/SGOT) 13 L, Alanine Aminotransferase (ALT/SGPT) 27, Total Bilirubin 0.5 UA negative lipase WNL CT abdomen showed left tiny non obstructing stones, but none on right side. some constipation. Differential Diagnosis back pain vs muscle spasm vs kidney stone vs kidney infection vs CVA tenderness vs herniated disk Narrative Course 47-year-old male that presents to the ED for evaluation of right-sided back pain. Patient was properly examined and was found to have signs and symptoms of unclear etiology at this time. Very likely muscle scale of patient's altered pain in the area of the CVA. Recommendation at this time is labs and imaging. Patient agrees. Patient was given IV pain medications. Labs and imaging showed no sign of acute disease. Patient was well-hydrated and was given some fluids here. Patient does have kidney stones on the left side but on the right. Possible muscle strain versus medically kidney stone that has passed now. Patient had relief from medications given here. Patient will be discharged home with instructions to follow with PCP. Given prescriptions for diclofenac sodium and Lortab. Told to use as needed. Follow with PCP. Warm compresses. See ED worsening symptoms. Diagnosis Primary Impression: Flank pain, acute Additional Impression: Renal calculus, left Patient Instructions: General Instructions, Narcotic given in the ED Departure Forms: Tests/Procedures, Work Release Enter return to work date: Jan 07, 2018 Additional Instructions: Take medications as prescribed. Follow-up with PCP. See ED for any worsening symptoms. Do not drink or drive while taking pain medication. Apply ice or heat as needed for pain Med/Other Pt SpecificInfo: Prescription(s) given Scripts Hydrocodone/Acetaminophen (Hydrocodone-Acetamin 5-325 mg) 5 Mg-325 Mg Tablet 1 TAB PO Q6HR Y for PAIN SCALE 1 TO 10, #12 Prov: Angela Pinzon MD 01/04/[address] (Diclofenac Sodium DR) 75 Mg Tabdr 75 MG PO BID Y for PAIN SCALE 1 TO 10, #20 TAB 0 Refills Prov: Angela Pinzon MD 01/04/18 Disposition: 01 DISCHARGE HOME Condition: Jignesh Jennings Jan 04, 2018 12:35
[2018-01-04 12:36] LABS: TOTAL BILIRUBIN ADULT 0.5 MG/DL (0.2-1.0); TOTAL PROTEIN 8.2 GM/DL (6.4-8.2)
[2018-01-04 12:37] LABS: ALKALINE PHOSPHATASE 115 U/L (45-117)
[2018-01-04] MEDS ORDERED: SODIUM CHLOR 0.9% 1000 ML INJ 1,000 ML IV ONE (12:45)
--- NOTE | 2018-01-04 13:36 | RADRPT ---
EXAM DATE/TIME: 01/04/2018 12:39 [facility] COMPARISON: No previous studies available for comparison. INDICATIONS : Right flank pain. ORAL CONTRAST: No oral contrast ingested. RADIATION DOSE: 17.58 CTDIvol (mGy) MEDICAL HISTORY : None SURGICAL HISTORY : None. ENCOUNTER: Initial ACUITY: 1 week PAIN SCALE: 8/10 LOCATION: Right flank TECHNIQUE: Volumetric scanning of the abdomen and pelvis was performed. Using automated exposure control and ad justment of the mA and/or kV according to patient size, radiation dose was kept as low as reasonably achievable to obtain optimal diagnostic quality images. DICOM format image data is available electro nically for review and comparison. FINDINGS: Lung bases are clear. No acute findings in the liver spleen, adrenals, right kidney or pancreas. Tiny 1 mm nonobstructing calculus lower pole left kidney. No calcified gallstones. No bowel obstruction. No free air or free fluid. Mild constipation. Colonic diverticula without evide nce for diverticulitis. CONCLUSION: 1. Tiny nonobstructing calculus lower pole left kidney. No right renal calculi or obstructive uropath y. 2. Mild constipation. No free air or free fluid. No adenopathy. Nakul Centeno MD on January 04, 2018 at 13:29 Board Certified Radiologist. This report was verified electronically.
[2018-01-04] MEDS ORDERED: HYDR-3516 PO (13:46)
[2018-01-04] MEDS ORDERED: DICL75TA PO (13:46)
[2018-01-04 14:30] VITALS: BP 121/72; PULSE 78; RESP 14; O2SAT 98
== END 2018-01-04 14:35 | disposition home or self-care (01) ==
LOC: PHEFT 11:12
DX: N20.0 Calculus of kidney (principal); J45.909 Unspecified asthma, uncomplicated; Z72.0 Tobacco use
CPT/HCPCS: 74176; 80053; 81001; 83690; 85025; 96361; 96374; 96375; 96376; 99285; J1885; J2270; J2405; J7030

== ENCOUNTER 2018-03-26 22:05 | Emergency (ER) | payer SELFPAY ==
[~2018-03-26] VITALS: Ht 175.3 cm; Wt 87.9 kg
[~2018-03-26 22:05] MED LIST changes: +DICL75TA PO; +HYDR-3516 PO
[2018-03-26 22:06] VITALS: BP 135/87; PULSE 111; RESP 16; TEMP 98.5; O2SAT 95
== END 2018-03-27 00:29 | disposition left against medical advice (07) ==
LOC: PHED 22:05
DX: M54.2 Cervicalgia (principal); Z53.21 Procedure and treatment not carried out due to patient leaving prior to being seen by health care provider
CPT/HCPCS: 99281